=== PATIENT | female | born 1960 | race Caucasian/White ===

== ENCOUNTER 2017-02-11 09:45 | Outpatient (CLI) | payer BC ==
[~2017-02-11] VITALS: Ht 172.7 cm; Wt 94.1 kg
--- NOTE | ~2017-02-11 | HEMODYNAMI ---
PATIENT:ESA JAIMES MEDICAL RECORD: [id number] : 58 LOCATION:[facility] ADMISSION DATE: 02/11/17 Generatedon:02/11/201714:00 Patient name: ESA JAIMES Patient #: [id number] SSN: D OB: 1960 Date of study: 02/11/2017 Page: Of Hemodynamic Procedure Report Patient Data Patient Demographics Procedure consent was obtained First Name: ESA Gender: Female Last Name: FIONA : 1960 Middle Initial: BARBIE Age: 56 year(s) Patient #: [id number] Race: Unknown Additional ID: [id number] Contact details Address: [address] [place] [address] State: [place] City: [place] Zip code: [address] Admission Admission Data Admission Date: 02/11/2017 Admission Time: 9:45 Procedure Procedure Types Cath Procedure Diagnostic Procedure LHC LHC w/Coronaries FFR/IVUS Intra-Coronary IVUS Initial PCI Procedure Coronary Stent Initial Miscellaneous Procedures Moderate Sedation up to 45 minutes Procedure Description Procedure Date Procedure Date: 02/11/2017 Procedure Start Time: 13:09 Procedure End Time: 13:59 Procedure Staff Name Function Luisito Alfonso MD Performing Physician Earl Lofton RT Scrub Joya Perez RN Nurse Surjit Benjamin RT Monitor Procedure Data Cath Procedure Fluoroscopy Diagnostic fluoroscopy Total fluoroscopy Time: 4.8 time: 4.8 min min Diagnostic fluoroscopy Total fluoroscopy dose: 363 dose: 363 mGy mGy Contrast Material Contrast Material Type Amount (ml) Isovue 300 136 Entry Location Entry Primary Successful Side Size Upsize Upsize Entry Closure Rivas ccessful Closure Location (Fr) 1 (Fr) 2 (Fr) Remarks Device Remarks Radial Right 6 Fr Mechanical artery Short Compression Estimated blood loss: 10 ml Diagnostic catheters Device Type Used For End Catheter Placement Diagnostic Terumo 5Fr Procedure Delco 110cm catheter Diagnostic Terumo 5Fr Procedure Delco 110cm catheter Procedure Complications No complications Procedure Medications Medication Administration Route Dosage Oxygen NC 2 l/min Heparin Flush Bag added to field 2 bags (1000units/500ml NS) Lidocaine 2% added to field 20 Radial Cocktail added to field 1 syringe (Verapomil 2mg/Nitro 400mcg/Heparin 1500units) Versed I.V. 1 mg Fentanyl I.V. 50 mcg Versed I.V. 1 mg Fentanyl I.V. 50 mcg Versed I.V. 1 mg Fentanyl I.V. 50 mcg Versed I.V. 1 mg Fentanyl I.V. 50 mcg Radial Cocktail I.A. 1 syringe (Verapomil 2mg/Nitro 400mcg/Heparin 1500units) Versed I.V. 0.5 mg Fentanyl I.V. 25 mcg Versed I.V. 0.5 mg Fentanyl I.V. 25 mcg Versed I.V. 0.5 mg Fentanyl I.V. 25 mcg Fentanyl I.V. 25 mcg Versed I.V. 0.5 mg Versed I.V. 0.5 mg Versed I.V. 0.5 mg Versed I.V. 0.5 mg Heparin Bolus 5000 units Versed I.V. 0.5 mg Versed I.V. 0.5 mg Versed I.V. 0.5 mg Hemodynamics Rest Heart Rate: 76 (bpm) Pressure Samples Time Site Value (mmHg) Purpose Heart Use Rate(bpm) 13:17 LV 137/11,11 Snapshot 95 Snapshots Pre Cath Intra NCS Post Cath Vital Signs Time Heart Resp SPO2 NIBP (mmHg) Rhythm Pain Sedation Rate (ipm) (%) Status Level (bpm) 12:51:19 89 15 95 157/94(131) NSR 0 (11) 10(A) , No pain 12:55:45 78 15 100 155/93(130) NSR 0 (11) 10(A) , No pain 13:00:07 79 19 100 155/97(120) NSR 0 (11) 10(A) , No pain 13:04:25 77 18 97 137/86(109) NSR 0 (11) 10(A) , No pain 13:08:41 79 15 98 120/77(103) NSR 0 (11) 10(A) , No pain 13:12:55 83 16 98 131/80(124) NSR 0 (11) 10(A) , No pain 13:17:20 110 16 96 122/64(85) ST 0 (11) 10(A) , No pain 13:21:37 94 18 96 132/71(106) NSR 0 (11) 10(A) , No pain 13:25:58 90 18 96 125/73(92) NSR 0 (11) 10(A) , No pain 13:30:03 93 16 96 117/91(100) NSR 0 (11) 10(A) , No pain 13:34:15 81 16 97 107/80(98) NSR 0 (11) 10(A) , No pain 13:38:25 86 16 97 126/75(105) NSR 0 (11) 10(A) , No pain 13:42:45 94 19 98 125/72(92) NSR 0 (11) 10(A) , No pain 13:47:03 87 19 96 121/76(95) NSR 0 (11) 10(A) , No pain 13:51:19 86 20 98 142/76(98) NSR 0 (11) 10(A) , No pain 13:55:39 86 10 98 132/78(97) NSR 0 (11) 10(A) , No pain Medications Time Medication Route Dose Verified Delivered Reason Notes Effectiveness by by 12:54:18 Oxygen NC 2 l/min Luisito Joya Per Naty Perez RN physician 12:54:27 Heparin Flush added 2 bags Luisito Jorge used for Bag to Naty Alfonso MD procedure (1000units/500ml field NS) 12:54:34 Lidocaine 2% added 20ml Luisito Jorge used for to vial Naty Alfonso MD procedure field 12:54:43 Radial Cocktail added 1 Luisitochase Jorge used for (Verapomil to syringe Naty Alfonso MD procedure 2mg/Nitro field 400mcg/Heparin 1500units) 13:05:05 Versed I.V. 1 mg Luisito Joya for sedation Naty Perez RN 13:05:13 Fentanyl I.V. 50 mcg Luisito Joya for sedation Naty Perez RN 13:07:12 Versed I.V. 1 mg Luisito Joya for sedation Naty Perez RN 13:07:22 Fentanyl I.V. 50 mcg Luistio Joya for sedation Naty Perez RN 13:09:11 Versed I.V. 1 mg Luisito Joya for sedation Naty Perez RN 13:09:15 Fentanyl I.V. 50 mcg Luisito Joya for sedation Naty Perez RN 13:11:19 Versed I.V. 1 mg Luisito Joya for sedation Naty Perez RN 13:11:26 Fentanyl I.V. 50 mcg Luisito Joya for sedation Naty Perez RN 13:14:51 Radial Cocktail I.A. 1 Luisito Luisito for (Verapomil syringe Taumiryam Alfonso MD vasodilation 2mg/Nitro 400mcg/Heparin 1500units) 13:14:55 Versed I.V. 0.5 mg Luisito Joya for sedation Naty Perez RN 13:15:08 Fentanyl I.V. 25 mcg Luisito Joya for sedation Naty Perez RN 13:19:11 Versed I.V. 0.5 mg Luisito Joya for sedation Naty Perez RN 13:19:27 Fentanyl I.V. 25 mcg Luisito Joya for sedation Naty Perez RN 13:23:11 Fentanyl I.V. 25 mcg Luisito Joya for sedation Naty Perez RN 13:23:18 Versed I.V. 0.5 mg Luisito Joya for sedation Naty Perez RN 13:25:38 Fentanyl I.V. 25 mcg Luisito Joya for sedation Naty Perez RN 13:25:41 Versed I.V. 0.5 mg Luisito Joya for sedation Naty Perez RN 13:29:05 Versed I.V. 0.5 mg Luisito Joya for sedation Naty Perez RN 13:31:08 Versed I.V. 0.5 mg Luisito Joya for sedation Naty Perez RN 13:35:17 Versed I.V. 0.5 mg Luisito Joya for sedation Naty Perez RN 13:38:49 Versed I.V. 0.5 mg Luisito Joya for sedation Naty Perez RN 13:39:04 Heparin Bolus 5000 Luisito Jyoa dose units Naty Perez RN verified with dr alfonso 13:45:55 Versed I.V. 0.5 mg Luisito Alfredca for sedation Naty Perez RN 13:48:42 Versed I.V. 0.5 mg Luisito Raymondecca for sedation Naty Perez tennis net maker Log Time Note 12:30:01 Earl Lofton RT(R) sent for patient. Start room use. 12:33:57 ACC Patient presents with Stable Angina CCS Anginal Class 2--Slight limitation of ordinary activity. 12:33:59 Diagnostic Cath status Elective 12:34:02 Time tracking: Regular hours 12:34:06 Plan of Care:Hemodynamics will remain stable., Cardiac rhythm will remain stable., Comfort level will be maintained., Respiratory function will remain adequate., Patient/ family verbilizes understanding of procedure., Procedure tolerated without complication., Recovers from procedure without complications.. 12:45:43 Patient received from Pre/Post Procedure Room to [facility] Alert and oriented. Tansferred to table in Supine position. 12:50:02 Vital chart was started 12:54:18 Oxygen 2 l/min NC was administered by Joya Perez RN; Per physician; 12:54:27 Heparin Flush Bag (1000units/500ml NS) 2 bags added to field was administered by Luisito Alfonso MD; used for procedure; 12:54:34 Lidocaine 2% 20ml vial added to field was administered by Luisito Alfonso MD; used for procedure; 12:54:43 Radial Cocktail (Verapomil 2mg/Nitro 400mcg/Heparin 1500units) 1 syringe added to field was administered by Luisito Alfonso MD; used for procedure; 13:02:54 Warm blankets applied, and rashawn hugger turned on for patient comfort. 13:02:54 Correct patient and procedure confirmed by team. 13:02:55 ECG and BP/O2 sat monitors applied to patient. 13:02:56 Signed procedure consent form obtained from patient. 13:02:57 Baseline sample Acquired. 13:03:01 Rhythm: sinus rhythm 13:03:02 Full Disclosure recording started 13:03:22 H&P Date Dictated: 02/01/2017 Within 30 days and on chart., H&P Addendum completed by physician on day of procedure. (MUST COMPLETE FOR ALL OUTPATIENTS). 13:03:23 Pre-procedure instructions explained to patient. 13:03:23 Pre-op teaching completed and patient verbalized understanding. 13:03:30 Family in waiting room. 13:03:31 Patient NPO since Midnight. 13:03:33 Is the patient allergic to Iodine/contrast media? No. 13:03:39 Is patient on blood thinner?Yes 13:03:50 ACC The patient was administered the following blood thiners within the last 24 hours: ACCPlavix 13:03:53 Patient diabetic? No. 13:04:05 Patient not . Patient is over age 55. 13:04:08 Previous problem with sedation/anesthesia? No ? 13:04:09 Snore? Yes 13:04:10 Sleep apnea? No 13:04:11 Deviated septum? No 13:04:11 Opens mouth fully? Yes 13:04:12 Sticks out tongue? Yes 13:04:14 Airway obstruction? No ? 13:04:15 Dentures? No ? 13:04:22 Pre procedure: right dorsailis pedis pulse 1+ Palpable, but thready & weak; easily obliterated 13:04:24 Modified Dima's test Ulnar < 7 seconds 13:04:26 Patient pain scale 0/10 ?. 13:04:31 IV patent on arrival in left forearm with 0.9% NaCl at [facility]. 13:04:32 Lab results completed and on chart. 13:04:35 Right Radial & Right Groin area was prepped with chlora-prep and draped in sterile fashion 13:04:36 Alarms reviewed by R. N. 13:04:36 Sharps counted by scrub and verified by R.N. 13:04:37 --------ALL STOP TIME OUT------ 13:04:38 Final Timeout: patient, procedure, and site verified with staff and physician. All members of the team are in agreement. 13:04:40 Right Radial & Right Groin site verified by team. 13:04:43 Physical assessment completed. ASA score P 2 - A patient with mild systemic disease as per Luisito Alfonso MD. 13:04:45 Sedation plan: IV Moderate Sedation Versed, Fentanyl 13:05:05 Versed 1 mg I.V. was administered by Joya Perez RN; for sedation; 13:05:13 Fentanyl 50 mcg I.V. was administered by Joya Perez RN; for sedation; 13:07:12 Versed 1 mg I.V. was administered by Joya Perez RN; for sedation; 13:07:22 Fentanyl 50 mcg I.V. was administered by Joya Perez RN; for sedation; 13:09:11 Versed 1 mg I.V. was administered by Joya Perez RN; for sedation; 13:09:15 Fentanyl 50 mcg I.V. was administered by Joya Perez RN; for sedation; 13:09:31 Use device set Radial Dx 13:09:34 Tegaderm 4 x 4 opened to sterile field. 13:09:35 Acist Hand Control opened to sterile field. 13:09:35 Acist Manifold opened to sterile field. 13:09:38 Acist Syringe opened to sterile field. 13:09:39 Medline Cath Pack opened to sterile field. 13:09:39 Bag Decanter opened to sterile field. 13:09:40 Terumo 6Fr Slender Glidesheath opened to sterile field. 13:09:40 St Edison 260cm J .035 wire opened to sterile field. 13:09:41 MBrace Wrist Support opened to sterile field. 13:09:46 Procedure started. 13:09:51 Local anesthetic to right radial artery with Lidocaine 2% by Luisito Alfonso MD.INITIAL ACCESS ONLY 13:11:19 Versed 1 mg I.V. was administered by Joya Perez RN; for sedation; 13:11:21 Zero performed for pressure channel P1 13:11:26 Fentanyl 50 mcg I.V. was administered by Joya Perez RN; for sedation; 13:14:44 A 6 Fr Short sheath was inserted into the Right Radial artery 13:14:51 Radial Cocktail (Verapomil 2mg/Nitro 400mcg/Heparin 1500units) 1 syringe I.A. was administered by Luisito Alfonso MD; for vasodilation; 13:14:55 Versed 0.5 mg I.V. was administered by Joya Perez RN; for sedation; 13:15:08 Fentanyl 25 mcg I.V. was administered by Joya Perez RN; for sedation; 13:15:29 A Diagnostic Terumo 5Fr Delco 110cm catheter was advanced over the wire and used for Procedure. 13:17:28 LV angiography performed. 13:17:34 LV gram done using CHU 13:17:40 EF : 60 % 13:17:44 Injector settings: Ml/sec: 7, Volume: 15, 13:17:51 Catheter removed. 13:18:15 Case delayed due to emergency in another room. Pt resting comfortably. 13:19:11 Versed 0.5 mg I.V. was administered by Joya Perez RN; for sedation; 13:19:27 Fentanyl 25 mcg I.V. was administered by Joya Perez RN; for sedation; 13:23:11 Fentanyl 25 mcg I.V. was administered by Joya Perez RN; for sedation; 13:23:18 Versed 0.5 mg I.V. was administered by Joya Perez RN; for sedation; 13:25:38 Fentanyl 25 mcg I.V. was administered by Joya Perez RN; for sedation; 13:25:41 Versed 0.5 mg I.V. was administered by Joya Perez RN; for sedation; 13:29:05 Versed 0.5 mg I.V. was administered by Joya Perez RN; for sedation; 13:31:08 Versed 0.5 mg I.V. was administered by Joya Perez RN; for sedation; 13:34:48 A Diagnostic Terumo 5Fr Delco 110cm catheter was advanced over the wire and used for Procedure. 13:35:17 Versed 0.5 mg I.V. was administered by Joya Perez RN; for sedation; 13:35:55 RCA angiography performed. 13:36:24 Catheter exchanged over wire. 13:37:04 Pierre Whisper J 300cm 0.014 guide wire opened to sterile field. 13:37:04 BlueVox BasixCompak Inflation Kit opened to sterile field. 13:37:04 Excelimmunetronic Launcher 6Fr EBU 3.5 guide catheter opened to sterile field. 13:37:19 6 Fr EBU 3.5 guide catheter was inserted over the wire 13:38:29 LCA angiography performed. 13:38:39 [place] Teller Eagleye IVUS Catheter opened to sterile field. 13:38:49 Versed 0.5 mg I.V. was administered by Joya Perez RN; for sedation; 13:38:49 ACC PCI Site: dLAD has 90% stenosis. 13:38:50 ACC Pre-intervention ANDREW Flow is 3. 13:38:51 Whisper wire advanced. 13:39:04 Heparin Bolus 5000 units was administered by Joya Perez RN; ; dose verified with dr alfonso 13:40:41 Wire advanced across lesion. 13:43:19 Inflation Number: 1 A Biofreedom 2.25 x 8 Stent (No Cost Implant) was prepped and advanced across the Dist LAD. The stent was deployed at 13 DAI for 0:10 (min:sec). 13:44:27 ACC Post-intervention ANDREW Flow is 3. 13:44:28 Stent catheter was removed intact over wire. 13:44:29 Wire removed. 13:44:29 Guide catheter removed. 13:44:42 Pierre Whisper J 300cm 0.014 guide wire opened to sterile field. 13:45:26 Medtronic Launcher 6Fr AR 2.0 guide catheter opened to sterile field. 13:45:36 6 Fr AR 2 guide catheter was inserted over the wire 13:45:55 Versed 0.5 mg I.V. was administered by Joya Perez RN; for sedation; 13:46:10 New Whisper wire advanced. 13:46:32 Wire advanced across lesion. 13:46:38 IVUS catheter advanced over wire. 13:47:27 IVUS pass to RCA lesion performed. 13:47:28 IVUS catheter removed over wire. 13:48:13 Wire removed. 13:48:14 Guide catheter removed. 13:48:28 Terumo TR Band Standard opened to sterile field. 13:48:42 Versed 0.5 mg I.V. was administered by Joya Perez RN; for sedation; 13:48:47 Sheath removed intact; hemostasis achieved with Mechanical Compression to the Right Radial artery. 13:48:50 Procedure ended.(Physican Out) 13:49:09 Fluoroscopy time 04.80 minutes. 13:49:17 Fluoroscopy dose: 363 mGy 13:49:17 Flurop Dose total: 363 13:50:08 Contrast amount:Isovue 300 136ml. 13:50:09 Sharps counted by scrub and verified by R.N. 13:50:14 Insertion/operative site no bleeding no hematoma. 13:50:34 TR band inflated with 12cc of air. 13:50:36 Post Procedure Pulses reassessed and unchanged 13:50:39 Post-procedure physical assessment completed. ASA score P 2 - A patient with mild systemic disease as per Luisito Alfonso MD. 13:50:42 Post procedure rhythm: unchanged. 13:50:46 Estimated blood loss: 10 ml 13:50:48 Post procedure instruction explained to patient.Patient verbalizes understanding. 13:50:48 Patient needs reinforcement of post procedure teaching. 13:51:20 Procedure type changed to Cath procedure, Diagnostic procedure, LHC, LHC w/Coronaries, FFR/IVUS, Intra-Coronary IVUS Initial, PCI procedure, Coronary Stent Initial, Miscellaneous Procedures, Moderate Sedation up to 45 minutes 13:51:24 Procedure Complication : No complications 13:52:18 Procedure and supply charges have been captured, reviewed, submitted and are correct. 13:58:58 Vital chart was stopped 13:58:59 See physician's report for complete and final results. 13:59:00 Report given to Pre/Post Procedure Room. 13:59:04 Patient transfered to Pre/Post Procedure Room with Stretcher. 13:59:06 Procedure ended. 13:59:06 Full Disclosure recording stopped 13:59:12 End room use (Document Last) Intervention Summary Intervention Notes Time ActionType Lesion and Equipment Action# Pressure Duration Attributes Used 13:43:19 Place stent Dist LAD Biofreedom 1 13 00:10 2.25 x 8 Stent (No Cost Implant) Device Usage Item Name Manufacture Quantity Catalog Hospital Part Current Minimal Lot# / Number Charge Number Stock Stock Serial# Code Tegaderm 4 3M 1 [id number] 332604 [id number] 497596 5 x 4 Acist Hand Acist 1 63000 [id number] 762289 133110 5 Control Medical Systems Inc Acist Acist 1 17965 289775 065740 867578 5 Manifold Medical Systems Inc Acist Acist 1 23580 200241 504450 887266 20 Syringe Medical Systems Inc Medline Cardinal 1 [id number] 355995 05328 593286 5 Cath Pack Health Bag Microtek 1 2001S 478100 33271 347822 5 Decanter Medical Inc. Terumo 6Fr Terumo 1 [id number] 144470 139223 775359 [address] St Edison 1 139443 911437 339360 982770 30 260cm J .035 wire MBrace Advanced 1 [id number] 719514 66693 156341 5 Wrist Vascular Support Dynamics Diagnostic Terumo 1 88-4940 385498 974134 777834 5 Terumo 5Fr Delco 110cm catheter Pierre Pierre 2 [id number] 169386 445016 062661 5 Whisper J Vascular 300cm 0.014 guide wire [facility] 1 [id number] 146009 963461 713497 15 BasixCommdk Medical Inflation Kit Medtronic Medtronic 1 [id number] 049161 28512 849589 3 Launcher 6Fr EBU 3.5 guide catheter [place] 1 [id number] 412769 406261 400518 8 Teller Eagleye IVUS Catheter Biofreedom Biosensors 1 [id number] 590991 534404 5 [id number] 2.25 x 8 [place] SA Stent (No Cost Implant) Medtronic Medtronic 1 [id number] 502245 83742 688159 1 Launcher 6Fr AR 2.0 guide catheter Terumo TR Terumo 1 [id number] 546253 585341 495018 40 Band Standard Signature [facility]it [place] Stage Time Signature Unsigned Intra-Procedure 02/11/2017 Surjit Benjamin 2:00:03 PM RT(R) Signatures Monitor : Surjit Benjamin RT Signature : Date : Time : [facility] [address], [place] [address]
[2017-02-11] MEDS ORDERED: PLAVIX75 MG PO (10:26)
[2017-02-11] MEDS ORDERED: ESTRACE 0.5 MG0.5 MG PO (10:29)
[2017-02-11] MEDS ORDERED: CRESTOR20 MG PO (10:29)
[2017-02-11] MEDS ORDERED: FOLIC ACID1 MG PO (10:30)
[2017-02-11] MEDS ORDERED: METHOTREXATE2.5 MG PO (10:30)
[2017-02-11 10:32] VITALS: BP 151/84; Ht 172.7 cm; Wt 94.1 kg
[2017-02-11 10:51] LABS: BASOPHILS 0.9 % (0-2); EOSINOPHILS 5.1 % (0-7); HEMATOCRIT 41.6 % (36.0-48.0); HEMOGLOBIN 13.7 g/dL (12-16); IMMATURE GRANULOCYTES 0.2 % (0-5); LYMPHOCYTES 29.4 % (15-50); MCH 29.1 pg (26.0-34.0); MCHC 32.9 g/dL (31.0-37.0); MCV 88.3 fL (80.0-100.0); MEAN PLATELET VOLUME 12.7 fL (7.4-10.4); MONOCYTES 12.3 % (2-11); NEUTROPHILS 52.1 % (40-80); RBC 4.71 10x6/uL (4.00-5.40); RDW 14.1 % (11.5-14.5); WBC 5.5 10x3/uL (4.8-10.8)
[2017-02-11 10:57] LABS: PLATELET COUNT 171 10x3/uL (130-400)
[2017-02-11 11:24] LABS: CALC OSMOLALITY 280 mosm/kg (275-300); CARBON DIOXIDE 27.4 mmol/L (21.0-32.0); CHLORIDE - SERUM 103 mmol/L (98-107); CKMB 0.4 U/L (0.0-3.6); CREATINE KINASE 50 UL (21-215); CREATININE - SERUM 1.1 mg/dL (0.6-1.3); GLUCOSE 86 mg/dL (74-106); POTASSIUM - SERUM 3.8 mmol/L (3.5-5.1); SODIUM 140 mmol/L (136-145); TROPONIN-I < 0.017 ng/mL (0.000-0.060); UREA NITROGEN 20 mg/dL (7-18); eGFR NON AFRICAN AMERICAN 54 mL/min (90-120)
[2017-02-11] MEDS ORDERED: ALEVE220 MG PO (13:49)
[2017-02-11] MEDS ORDERED: PRAVACHOL40 MG PO (14:30)
[2017-02-11] MEDS ORDERED: BAYER CHEWABLE81 MG PO (14:32)
--- NOTE | 2017-02-11 14:39 | NUR ---
1425 SITTING UP IN BED, ALERT AND TALKING WITH AT BEDSIDE. ROOM AIR WITH NO DISTRESS. NSR RATE 84 WNO C/O CHEST PAIN. PULSES PALP X 4.
--- NOTE | 2017-02-11 15:11 | NUR ---
1455 SITTING UP IN BED TALKING WITH . SIPPING SODA AND EATING SANDWICH. NO NAUSEA, CHEST PAIN. PULSES PALP X 4. R WRIST TR BAND C/D/I WITH NO HEMATOMA. ROOM AIR AND ALL VITALS WNL.
--- NOTE | 2017-02-11 17:59 | NUR ---
1600 RESTING WITH EYES CLOSED, ROOM AIR WITH NO DISTRESS. VITALS ALL WNL. R WRIST TR BAND C/D/I WITH NO HEMATOMA OR BLEEDING. 1735 PIV REMOVED FROM LEFT ARM WITH ARM APPLIED. 2CC AIR REMOVED FROM TR BAND. WILL MONITOR FOR BLEEDING. AMBULATED TO BATHROOM TO VOID. 1800 REMAINDER OF AIR WEANED FROM R WRIST TR BAND WITH TEGADERM WITH COTTON BALL. BRACE IN PLACE. D/C INSTRUCTIONS DISCUSSED WITH PATIENT AND AT BEDSIDE. WHEELED OUT VIA WHEELCHAIR.
--- NOTE | 2017-02-19 08:33 | PRO ---
PATIENT:ESA JAIMES MEDICAL RECORD: [id number] : 58 LOCATION:[facility] ADMISSION DATE: 02/11/17 PROCEDURE PERFORMED BY: GISSELLE YU MD PROCEDURE DATE: 02/11/17 PROCEDURES: 1. PTCA stent of the LAD. 2. Left heart catheterization. 3. Selective coronary angiography. 4. Left ventriculogram. INDICATION: 1. Angina. 2. Coronary artery disease. PROCEDURE IN DETAIL: After informed consent was obtained and after detailed explanation of risks, benefits, as well as alternative therapies, the patient elected to proceed with angiogram and angioplasty. The right radial area was prepped and draped in a normal sterile fashion. The right radial artery was cannulated via modified Seldinger technique with placement of 6-Kenyan sheath. All catheters exchanged through this sheath. FINDINGS: Left ventriculogram was performed in standard 30 degree CHU view, reveals preserved cardiac wall motion with ejection fraction of greater than 50%. SELECTIVE CORONARY ANGIOGRAPHY: 1. The right coronary artery has moderate irregularities but no discrete flow-limiting stenosis. 2. The left circumflex has moderate irregularities but no discrete flow-limiting stenosis. 3. The left anterior descending has an 80-90% stenosis in the distal vessel. PTCA STENT OF THE LAD: This was an 8 millimeter lesion in a 2.25 millimeter vessel at 90% stenosed. This was addressed with a 2.25 X 8 millimeter BioFreedom stent. The result was 0% residual stenosis, ANDREW 3 flow. There was ANDREW 3 flow before and after the intervention. OVERALL IMPRESSION: Successful percutaneous transluminal coronary angioplasty stent of the left anterior descending going from 90% initial stenosis to 0% residual stenosis. GISSELLE YU MD at 0833 CC: [id number] DICTATION DATE: 02/18/172143 [facility] [employer] PIL[facility]: SANDRITA 02/18/172143 [facility] [address]
== END 2017-02-11 18:03 | disposition home or self-care (01) ==
LOC: D.CATH 09:45
PROVIDERS: Internal Medicine Interventional Cardiology
DX: I25.119 Atherosclerotic heart disease of native coronary artery with unspecified angina pectoris (principal); Z00.6 Encounter for examination for normal comparison and control in clinical research program; Z01.812 Encounter for preprocedural laboratory examination

== ENCOUNTER 2019-01-24 07:25 | Outpatient (CLI) | payer BC ==
[~2019-01-24] VITALS: Ht 170.2 cm; Wt 96.4 kg
--- NOTE | ~2019-01-24 | HEMODYNAMI ---
PATIENT:ESA JAIMES MEDICAL RECORD: [id number] : 58 LOCATION:[facility] ADMISSION DATE: 01/24/19 Generatedon:01/24/20199:49 Patient name: ESA JAIMES Patient #: [id number] SSN: D OB: 1960 Date of study: 01/24/2019 Page: Of Hemodynamic Procedure Report Patient Data Patient Demographics Procedure consent was obtained First Name: ESA Gender: Female Last Name: FIONA : 1960 Middle Initial: BARBIE Age: 58 year(s) Patient #: [id number] Race: Unknown Additional ID: [id number] Contact details [address]: [address] [place] [address] State: [place] City: [place] Zip code: [address] Admission Admission Data Admission Date: 01/24/2019 Admission Time: 7:25 Weight (lbs.): 211.64 Weight (kg.): 96 Lab Results Lab Result Date: 01/24/2019 Lab Result Time: 0:00 Biochemistry Name Units Result Min Max BUN mg/dl 26 --(----)-* 7 18 Creatinine mg/dl 0.7 --(*---)-- 0.6 1.3 CBC Name Units Result Min Max Hemoglobin g/dl 12.8 -*(----)-- 13.5 17.5 Procedure Procedure Types Cath Procedure Diagnostic Procedure [facility] w/Coronaries Procedure Description Procedure Date Procedure Date: 01/24/2019 Procedure Start Time: 9:38 Procedure End Time: 9:47 Procedure Staff Name Function Luisito Alfonso MD Performing Physician Surjit Benjamin RT Monitor Terri Farley RT Scrub Chiara Ivory RN Nurse Procedure Data Cath Procedure Fluoroscopy Diagnostic fluoroscopy Total fluoroscopy Time: 2 time: 2 min min Diagnostic fluoroscopy Total fluoroscopy dose: 448 dose: 448 mGy mGy Contrast Material Contrast Material Type Amount (ml) Isovue 370 56 Entry Location Entry Primary Successful Side Size Upsize Upsize Entry Closure Rivas ccessful Closure Location (Fr) 1 (Fr) 2 (Fr) Remarks Device Remarks Radial Right 6 Fr Mechanical artery Short Compression Estimated blood loss: 10 ml Diagnostic catheters Device Type Used For End Catheter Placement DIAGNOSTIC Rockledge 110cm 5 Procedure Fr catheter ([id number]) Procedure Complications No complications Procedure Medications Medication Administration Route Dosage 0.9% NaCl I.V. 100 ml/hr Oxygen etCO2 Nasal cannula 2 l/min Lidocaine 2% added to field 20 Heparin Flush Bag added to field 2 bags (1000units/500ml NS) Radial Cocktail added to field 1 syringe (Verapamil 2mg/Nitro 400mcg/Heparin 1500units) Versed I.V. 2 mg Fentanyl I.V. 50 mcg Versed I.V. 2 mg Fentanyl I.V. 50 mcg Hemodynamics Rest HGB: 12.8 (g/dl) Heart Rate: 70 (bpm) Pressure Samples Time Site Value (mmHg) Purpose Heart Use Rate(bpm) 9:41 AO 121/73(97) Snapshot 74 9:43 AO 133/69(96) Snapshot 77 Snapshots Pre Cath Intra NCS Post Cath Vital Signs Time Heart Resp SPO2 etCO2 NIBP (mmHg) Rhythm Pain Sedation Rate (ipm) (%) (mmHg) Status Level (bpm) 9:23:15 67 26 100 31.5 167/101(142) NSR 0 (11) 10(A) , No pain 9:27:42 69 15 100 34.5 153/83(113) NSR 0 (11) 10(A) , No pain 9:32:02 73 11 98 37.5 149/79(111) NSR 0 (11) 10(A) , No pain 9:36:22 75 19 99 36 140/83(127) NSR 0 (11) 10(A) , No pain 9:40:31 53 18 99 35.2 129/94(99) NSR 0 (11) 10(A) , No pain 9:44:45 81 15 96 32.2 139/78(101) NSR 0 (11) 10(A) , No pain Medications Time Medication Route Dose Verified Delivered Reason Notes Ef fectiveness by by 9:22:21 0.9% NaCl I.V. 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 2 mg Luisito Chiara for Naty Ivory sedation RN 9:36:30 Fentanyl I.V. 50 mcg Luisito Chiara for Naty Ivory sedation RN 9:40:44 Versed I.V. 2 mg Luisito Chiara for Naty Ivory sedation RN 9:40:50 Fentanyl I.V. 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 Start room use. 9:07:53 Diagnostic Cath Status : Elective 9:08:13 Time tracking: Regular hours (M-F 7:00 - 5:00) 9:08:18 Plan of Care:Hemodynamics will remain stable., Cardiac rhythm will remain stable., Comfort level will be maintained., Respiratory function will remain adequate., Patient/ family verbilizes understanding of procedure., Procedure tolerated without complication., Recovers from procedure without complications.. 9:16:51 Patient received from Pre/Post Procedure Room to CCL 2 Alert and oriented. Tansferred to table in Supine position. 9:16:52 Warm blankets applied, and rashawn hugger turned on for patient comfort. 9:16:53 Correct patient and procedure confirmed by team. 9:16:56 Signed procedure consent form obtained from patient. 9:16:56 ECG and BP/O2 sat monitors applied to patient. 9:22:04 Vital chart was started 9:22:05 Baseline sample Acquired. 9:22:12 Rhythm: sinus rhythm 9:22:13 Full Disclosure recording started 9:22:17 H&P Date Dictated: 01/24/2019 Within 30 days and on chart., H&P Addendum completed by physician on day of procedure. (MUST COMPLETE FOR ALL OUTPATIENTS). 9:22:19 Pre-procedure instructions explained to patient. 9:22:19 Pre-op teaching completed and patient verbalized understanding. 9:22:21 0.9% NaCl 100 ml/hr I.V. was administered by Chiara Ivory RN; used for procedure; 9:22:21 Family in patients room. 9:22:23 Patient NPO since Midnight. 9:22:25 Is the patient allergic to Iodine/contrast media? No. 9:22:27 Was the patient premedicated? No 9:22:28 Is patient on blood thinner?Yes 9:22:31 Oxygen 2 l/min etCO2 Nasal cannula was administered by Chiara Ivory RN; used for procedure; 9::32 ACC The patient was administered the following blood thiners within the last 24 hours: ACCAspirin 9:22:35 Patient diabetic? No. 9:22:37 Lidocaine 2% 20ml vial added to field was administered by Luisito Alfonso MD; for local anesthetic; 9:22:37 Previous problem with sedation/anesthesia? No ? 9:22:39 Snore? Yes 9:22:40 Sleep apnea? No 9:22:41 Deviated septum? No 9:22:42 Opens mouth fully? Yes 9:22:42 Sticks out tongue? Yes 9:22:43 Heparin Flush Bag (1000units/500ml NS) 2 bags added to field was administered by Luisito Alfonso MD; used for procedure; 9:22:44 Airway obstruction? No ? 9:22:48 Radial Cocktail (Verapamil 2mg/Nitro 400mcg/Heparin 1500units) 1 syringe added to field was administered by Luisito Alfonso MD; used for procedure; 9:22:55 Dentures? Yes partials 9:22:59 Pre procedure: right dorsailis pedis pulse 2+ Normal; easily identifiable; not easily obliterated 9:23:01 Pre procedure: left dorsailis pedis pulse 2+ Normal; easily identifiable; not easily obliterated 9:23:04 Patient pain scale 0/10 ?. 9:23:10 IV patent on arrival in left forearm with 0.9% NaCl at [facility] 9:23:12 Lab results completed and on chart. 9:23:15 Right Radial & Right Groin area was prepped with chlora-prep and draped in sterile fashion 9:23:16 Alarms reviewed by R. N. 9:23:17 Sharps counted by scrub and verified by R.N. 9:28:20 Use device set Radial Dx or PCI 9:28:21 Tegaderm 4 x 4 ([id number]) opened to sterile field. 9:28:22 ACIST Manifold (90874) opened to sterile field. 9:28:22 ACIST Hand Control (26521) opened to sterile field. 9:28:24 ACIST Syringe (45662) opened to sterile field. 9:28:24 Medline Cath Pack ([id number]) opened to sterile field. 9:28:25 Bag Decanter (2002S) opened to sterile field. 9:28:26 DIAGNOSTIC WIRE .035 260cm J wire (275374) opened to sterile field. 9:28:26 MBrace Wrist Support ([id number]) opened to sterile field. 9:28:28 SHEATH 6FR Slender (30-6531) opened to sterile field. 9:28:52 Patient Weight : 211.64 lbs 9:30:10 Lab Result : BUN 26 mg/dl 9:30:10 Lab Result : Hemoglobin 12.8 g/dl 9:30:10 Lab Result : Creatinine 0.7 mg/dl 9:35:37 --------ALL STOP TIME OUT------ 9:35:37 Final Timeout: patient, procedure, and site verified with staff and physician. All members of the team are in agreement. 9:35:40 Right Radial & Right Groin site verified by team. 9:36:00 Maximum allowable Isovue 370 dose 300ml. Physician notified. (300ml for normal creatinines. For patients with creatinine of 1.7 or higher multiply weight(kg) x 5 divided by creatinine.) 9:36:04 Fire Safety Assessment: A--An alcohol-based skin anteseptic being used preoperatively., C--Open oxygen or nitrous oxide is being used., D--An ESU, laser, or fiber-optic light is being used. 9:36:07 Physical assessment completed. ASA score P 2 - A patient with mild systemic disease as per Luisito Alfonso MD. 9:36:10 Sedation plan: IV Moderate Sedation Medication:Versed, Fentanyl 9:36:21 Versed 2 mg I.V. was administered by Chiara Ivory RN; for sedation; 9:36:30 Fentanyl 50 mcg I.V. was administered by Chiara Ivory RN; for sedation; 9:38:02 Zero performed for pressure channel P1 9:38:19 Procedure started. 9:38:25 Local anesthetic to right radial artery with Lidocaine 2% by Luisito Alfonso MD.INITIAL ACCESS ONLY 9:38:44 A 6 Fr Short sheath was inserted into the Right Radial artery 9:40:44 Versed 2 mg I.V. was administered by Chiara Ivory RN; for sedation; 9:40:50 Fentanyl 50 mcg I.V. was administered by Chiara Ivory RN; for sedation; 9:40:52 A DIAGNOSTIC Rockledge 110cm 5 Fr catheter ([id number]) was advanced over the wire and used for Procedure. 9:40:55 LV angiography performed. 9:40:57 LV gram done using CHU 9:41:01 EF : 60 % 9:41:05 Injector settings: Ml/sec: 7, Volume: 15, 9:41:37 RCA angiography performed. 9:42:06 Catheter exchanged over wire. 9:42:58 6 Fr XB 3.5 SH guide catheter was inserted over the wire 9:43:03 GUIDE 6FR XB 3.5 SH catheter ([id number]) opened to sterile field. 9:43:26 LCA angiography performed. 9:44:32 Catheter removed. 9:44:41 TR BAND Standard ([id number]) opened to sterile field. 9:44:52 Sheath removed intact; hemostasis achieved with Mechanical Compression to the Right Radial artery. 9:44:56 Procedure ended.(Physican Out) 9:46:10 Fluoroscopy time 02.00 minutes. 9:46:13 Fluoroscopy dose: 448 mGy 9:46:13 Flurop Dose total: 448 9:46:23 Contrast amount:Isovue 370 56ml. 9:46:24 Sharps counted by scrub and verified by R.N. 9:46:25 Insertion/operative site no bleeding no hematoma. 9:46:27 TR band inflated with 10cc of air. 9:46:29 Post Procedure Pulses reassessed and unchanged 9:46:31 Post-procedure physical assessment completed. ASA score P 2 - A patient with mild systemic disease as per Luisito Alfonso MD. 9:46:33 Post procedure rhythm: unchanged. 9:46:35 Estimated blood loss: 10 ml 9:46:37 Post procedure instruction explained to patient.Patient verbalizes understanding. 9:46:37 Patient needs reinforcement of post procedure teaching. 9:46:56 Procedure and supply charges have been captured, reviewed, submitted and are correct. 9:46:59 Procedure Complication : No complications 9:47:04 Vital chart was stopped 9:47:04 See physician's report for complete and final results. 9:47:05 Report given to Pre/Post Procedure Room. 9:47:07 Patient transfered to Pre/Post Procedure Room with Stretcher. 9:47:09 Procedure ended. 9:47:09 Full Disclosure recording stopped 9:48:25 End room use (Document Last) Device Usage Item Name Manufacture Quantity Catalog Hospital Part Current Minimal Lot# / Number Charge Number Stock Stock Serial# Code Tegaderm 4 3M 1 1626W [id number] [id number] 5 x 4 (1626W) ACIST Acist 1 93013 588657 094568 166199 5 Manifold Medical (01677) Systems Inc ACIST Hand Acist 1 12874 662874 747267 061650 5 Control Medical (30239) Systems Inc ACIST Acist 1 75764 100705 983480 495152 20 Syringe Medical (43358) Systems Inc Medline Medline 1 [id number] 034139 33495 860755 5 Cath Pack ([id number]) Bag Microtek 1 2001S 760168 19253 263622 5 Decanter Medical Inc. () DIAGNOSTIC St Edison 1 277309 386083 013066 200222 30 WIRE .035 260cm J wire (083954) MBrace Advanced 1 140-0250-00 167513 69894 591901 5 Wrist Vascular Support Dynamics (800137100) SHEATH 6FR Terumo 1 [id number] 449751 305326 190907 5 Slender (80-1060) DIAGNOSTIC Terumo 1 34-5256 666879 289761 238821 5 Rockledge 110cm 5 Fr catheter (223393) GUIDE 6FR Cardinal 1 [id number] 830916 159328 230451 2 XB 3.5 [facility] Health catheter (04790309) TR BAND Terumo 1 [id number] 377228 587289 596130 40 Standard ([id number]) Signature Audit [facility] Time Signature Unsigned Intra-Procedure 01/24/2019 Surjit Benjamin 9:48:41 AM RT(R) Signatures Monitor : Surjit Benjamin RT Signature : Date : Time : [place] [id number] [place] [address]
[~2019-01-24 07:25] MED LIST: ALEVE220 MG PO; BAYER CHEWABLE81 MG PO; CRESTOR20 MG PO; ESTRACE 0.5 MG0.5 MG PO; FOLIC ACID1 MG PO; METHOTREXATE2.5 MG PO; PLAVIX75 MG PO; PRAVACHOL40 MG PO
[2019-01-24] MEDS ORDERED: NORVASC5 MG PO (07:45)
[2019-01-24] MEDS ORDERED: METHOTREXATE2.5 MG PO (07:46)
[2019-01-24] MEDS ORDERED: AMBIEN10 MG PO (07:47)
[2019-01-24] MEDS ORDERED: ULTRAM50 MG PO (07:48)
[2019-01-24 08:04] VITALS: BP 173/84; Ht 170.2 cm; Wt 96.4 kg
[2019-01-24 08:29] LABS: BASOPHILS 0.6 % (0-2); EOSINOPHILS 5.5 % (0-7); HEMATOCRIT 37.9 % (36.0-48.0); HEMOGLOBIN 12.8 g/dL (12-16); IMMATURE GRANULOCYTES 0.2 % (0-5); LYMPHOCYTES 32.8 % (15-50); MCH 29.6 pg (26.0-34.0); MCHC 33.8 g/dL (31.0-37.0); MCV 87.7 fL (80.0-100.0); MEAN PLATELET VOLUME 12.3 fL (7.4-10.4); MONOCYTES 9.3 % (2-11); NEUTROPHILS 51.6 % (40-80); PLATELET COUNT 170 10x3/uL (130-400); RBC 4.32 10x6/uL (4.00-5.40); RDW 14.5 % (11.5-14.5); WBC 5.3 10x3/uL (4.8-10.8)
[2019-01-24 08:41] LABS: CALC OSMOLALITY 285 mosm/kg (275-300); CARBON DIOXIDE 24.3 mmol/L (21.0-32.0); CHLORIDE - SERUM 107 mmol/L (98-107); CREATININE - SERUM 0.7 mg/dL (0.6-1.3); GLUCOSE 96 mg/dL (74-106); POTASSIUM - SERUM 3.8 mmol/L (3.5-5.1); SODIUM 141 mmol/L (136-145); UREA NITROGEN 26 mg/dL (7-18); eGFR NON AFRICAN AMERICAN > 90 mL/min (90-120)
[2019-01-24] MEDS ORDERED: ISOSORBIDE MONO30 M1 PO (09:58)
--- NOTE | 2019-01-24 10:02 | NUR ---
RECIEVED TO ROOM VIA STRETCHER FROM HAZARDOUS SUBSTANCES SCIENTIST WITH TR BAND TO R/WRIST CDI NO BLEEDING OR HEMATOMA NOTED. PATIENT DENIED CHEST PAIN ON ARRIVAL. HR 68 BP 145/69 INSTRUCTED PATIENT TO KEEP RUE STRAIGHT NO BENDING OR FLEXING OF WRIST
--- NOTE | 2019-01-24 10:13 | NUR ---
TR BAND REMAINS CDI NO BLEEDING OR HEMATOMA NOTED. HR 65 BP131/67. PATIENT DENIED PAIN OR NAUSEA SANDWICH SODA TO BEDSIDE
--- NOTE | 2019-01-24 10:25 | NUR ---
REPOSITIONED TO [facility] FOR COMFORT. TR BAND IS CDI TO R/WRIST WITH R/HAND WARM TO TOUCH CAP REFILL BRISK. PATIENT DENIED NAUSEA WITH PO FLUIDS AND SANDWICH TO BEDSIDE
--- NOTE | 2019-01-24 10:45 | NUR ---
PATIENT TALKING TO FAMILY PRESENT AT BEDSIDE VSS AND TR BAND TO R/WRIST REMAINS CDI
--- NOTE | 2019-01-24 10:57 | NUR ---
2 CC AIR REMOVED FROM TR BAND WITH NO BLEEDING OR HEMATOMA
--- NOTE | 2019-01-24 11:18 | NUR ---
3 CC AIR REMOVED FROM TR BAND WITH NO BLEEDING OR HEMATOMA NOTED. FAMILY IS PRESENT AT BEDSIDE PATIENT DENIED NEEDS
--- NOTE | 2019-01-24 11:36 | NUR ---
3 CC AIR REMOVED FROM TR BAND WITH NO BLEEDING NOTED. VERBAL AND WRITTEN DISCHARGE GONE OVER WITH PATIENT AND FAMILY
--- NOTE | 2019-01-24 11:53 | NUR ---
PIV REMOVED WITH DRESSING APPLIED. 3 CC AIR REMOVED FROM TR BAND WITH NO BLEEDING NOTED.
--- NOTE | 2019-01-24 12:08 | NUR ---
TR BAND REMOVED WITH DRESSING APPLIED. PATIENT LEFT VIA WC TO PARKING FOR PRIVATE TRANSPORT HOME CHEST PAIN IS DENIED
--- NOTE | 2019-01-26 09:40 | OP ---
PATIENT NAME: ESA JAIMES MEDICAL RECORD: [id number] :58 LOCATION:D.[facility] ADMISSION DATE: SURGEON: GISSELLE YU MD DATE OF OPERATION: 01/24/2019 PROCEDURES: 1. Left heart catheterization. 2. Selective coronary angiography. 3. Left ventriculogram. INDICATIONS: Angina and coronary artery disease. PROCEDURE IN DETAIL: After informed consent was obtained and after a detailed explanation of risks, benefits as well as alternative therapies, the patient elected to proceed with angiogram and heart catheterization. The right radial area was prepped and draped in normal sterile fashion. Right radial artery was cannulated via modified Seldinger technique with placement of 5-Singaporean sheath. All catheters exchanged through this sheath. FINDINGS: Left ventriculogram was performed in standard 30-degree [facility] view reveals excellent cardiac wall motion, ejection fraction of 65%. SELECTIVE CORONARY ANGIOGRAPHY: 1. Left main is with no significant angiographic disease. 2. Left anterior descending has previously placed stent that is widely patent with no significant restenosis. LAD has ycfs-px-paqnsrtz disease elsewise that is diffuse. 3. Left circumflex has qycu-kg-ozpyfnwo diffuse disease, but no discrete flow-limiting stenosis. 4. Right coronary has xrcw-fk-yevmfdsl diffuse disease, but no flow-limiting stenosis. OVERALL IMPRESSION: Stable coronary artery disease. No restenosis of the previously placed stent. Wfvc-oc-xzkynmeu diffuse disease elsewise. Continue medical management of the coronary artery disease and cardiac risk factors. TRANSINT:[id number] Voice Confirmation ID: [id number] DOCUMENT ID: [id number] GISSELLE YU MD at 0940 CC: [id number] DICTATION DATE: 01/24/19 0947 WOOL SHEARER: 01/24/19 1213 DEP CLI 01/24/19 [place] [id number]
== END 2019-01-24 12:09 | disposition home or self-care (01) ==
LOC: D.CATH 07:25
PROVIDERS: ATTEND Internal Medicine Interventional Cardiology
DX: I25.119 Atherosclerotic heart disease of native coronary artery with unspecified angina pectoris (principal); Z95.5 Presence of coronary angioplasty implant and graft; Z01.812 Encounter for preprocedural laboratory examination